=== PATIENT | male | born 1960 | race Caucasian/White ===

== ENCOUNTER 2019-10-14 07:26 | Day surgery (SDC) | payer BC ==
[~2019-10-14 07:26] MED LIST: Midazolam 1 MG/ML 2 ML SDV ONE; fentaNYL 100 MCG/2 ML SDV ONE
[2019-10-14] MEDS ORDERED: Midazolam 1 MG/ML 2 ML SDV IV ONE ×5 (07:27→08:37)
[2019-10-14] MEDS ORDERED: fentaNYL 100 MCG/2 ML SDV IV ONE ×3 (07:27→08:34)
[2019-10-14] MEDS ORDERED: Dextrose 5%-0.45% NaCl 1,000 ML IV SCH (08:00)
--- NOTE | 2019-10-14 09:14 | OR ---
DATE: 10/14/2019 PREOPERATIVE DIAGNOSIS: Personal history of prior colon polyps. POSTOPERATIVE DIAGNOSIS: Personal history of prior colon polyps. PROCEDURE: Total colonoscopy with snare excision of polyps x2, 1 in the cecum, 1 in the sigmoid. ANESTHESIA: Conscious sedation with IV Versed and fentanyl. SPECIMEN: Polyp x2. OPERATIVE FINDINGS: Above-mentioned polyps, very small, 3 to 4 mm in size, and scattered diverticula throughout the colon. INDICATION FOR PROCEDURE: This 59-year-old male has had a prior colonoscopy with polyp excision. He is here for followup. RECOMMENDATION: Followup colonoscopy in 5 years for screening. PROCEDURE IN DETAIL: After adequate preparation, colonoscope was inserted into the rectum. This was easily passed all the way to the cecum. Confirmation of the cecum was made by visualization of the ileocecal valve and palpation in the right lower quadrant. The bowel prep was good. On withdrawal of the scope, there is a small sessile polyp noted in the junction of the cecum and right colon. A small snare was placed around this. It was clipped off and retrieved for pathological evaluation. The rest of the colon was also normal except for some scattered diverticula throughout the colon, most prominently, however, in the sigmoid. At the junction of the sigmoid and rectum, there was another small 3 to 4 mm polyp. This was likewise snared off and retrieved for evaluation. No other abnormalities were noted. This patient should have a followup screening for polyp surveillance in 5 years. [facility] /[id number]
== END 2019-10-14 10:34 | disposition home or self-care (01) ==
LOC: DL.ENDO 07:26
PROVIDERS: ATTEND Surgery
DX: Z12.11 Encounter for screening for malignant neoplasm of colon (principal); D12.7 Benign neoplasm of rectosigmoid junction; D12.0 Benign neoplasm of cecum; K57.30 Diverticulosis of large intestine without perforation or abscess without bleeding; G43.909 Migraine, unspecified, not intractable, without status migrainosus; F17.210 Nicotine dependence, cigarettes, uncomplicated; Z86.010 Personal history of colon polyps
CPT/HCPCS: 45385; J7042; J2250; J3010

== ENCOUNTER 2024-11-09 07:22 | Day surgery (SDC) | payer BC ==
[2024-11-09] MEDS: Dextrose 5%-0.45% NaCl 1,000 ML IV SCH (07:59)
[2024-11-09] MEDS ORDERED: Midazolam 1 MG/ML 2 ML SDV IV ONE (08:14)
[2024-11-09] MEDS ORDERED: Midazolam 1 MG/ML 2 ML SDV ONE (08:14)
[2024-11-09] MEDS ORDERED: fentaNYL 100 MCG/2 ML SDV ONE (08:14)
[2024-11-09] MEDS ORDERED: fentaNYL 100 MCG/2 ML SDV IV ONE (08:14)
[2024-11-09] MEDS: fentaNYL 100 MCG/2 ML SDV IV ONE ×2 (08:28→08:29)
[2024-11-09] MEDS: Midazolam 1 MG/ML 2 ML SDV IV ONE ×4 (08:29→08:34)
== END 2024-11-09 09:50 | disposition home or self-care (01) ==
LOC: DL.ENDO 07:22
PROVIDERS: ATTEND Internal Medicine Gastroenterology
DX: Z12.11 Encounter for screening for malignant neoplasm of colon (principal); R19.5 Other fecal abnormalities; D12.3 Benign neoplasm of transverse colon; K57.30 Diverticulosis of large intestine without perforation or abscess without bleeding; K21.9 Gastro-esophageal reflux disease without esophagitis
CPT/HCPCS: 45380; J2250; J3010; J7799

== ENCOUNTER 2025-10-01 12:40 | Emergency (ER) | payer BC, MEDICARE ==
[2025-10-01] MEDS ORDERED: Sodium Chloride 0.9% 10 ML Syringe FLUSH PRN (13:30)
[2025-10-01] MEDS: Heparin Sodium 5,000 Units/ML Vial IVPUSH ONE (13:46)
[2025-10-01] MEDS: Heparin Sodium/0.45% NaCl 25,000 UNITS/500 ML BAG IV SCH (13:46)
[2025-10-01 13:48] LABS: BASOPHILS PERCENT AUTO 1.0 % (0.0-1.0); EOSINOPHILS PERCENT AUTO 5.7 % (1.0-3.0); LYMPHOCYTES PERCENT AUTO 26.5 % (20.5-50.1); MONOCYTES PERCENT AUTO 8.7 % (2-8); NEUTROPHILS PERCENT AUTO 58.1 % (42.2-75.2); PLATELET COUNT,PLT 412 10^3/uL (150-450); RED BLOOD CELL COUNT 4.92 10^6/uL (4.6-6.2); WHITE BLOOD CELL COUNT,WBC 6.0 10^3/uL (5.0-10.0)
[2025-10-01] MEDS: Ondansetron 4 MG/2 ML SDV IVPUSH ONE (13:56)
[2025-10-01 14:06] LABS: A/G RATIO 1.2; ALANINE AMINOTRANSFERASE,ALT 29.0 U/L (16-63); ASPARTATE AMNIOTRANSFERASE,AST 20.0 U/L (15-37); BILIRUBIN TOTAL 0.4 mg/dL (0.2-1.0); BLOOD UREA NITROGEN,BUN 19.0 mg/dL (7-18); CARBON DIOXIDE,CO2 29.0 mmol/L (21-32); CHLORIDE,CL 100.0 mmol/L (98-107); CREATININE 1.37 mg/dL (0.70-1.30); EST CRCL DRUG DOSING (CG) 53.76 mL/min; ESTIMATED GFR 57.0 mL/min (>=60); GLUCOSE RANDOM 99.0 mg/dL (70-99); POTASSIUM,K 4.2 mmol/L (3.5-5.1); PROTEIN TOTAL,TP 7.2 g/dL (6.4-8.2); SODIUM,NA 136.0 mmol/L (136-145)
[2025-10-01 14:09] LABS: INR 1.0 (0.9-1.2); PTT,PARTIAL THROMBOPLSTIN TIME 25.6 SEC (22.0-34.0)
== END 2025-10-01 14:19 ==
LOC: DL.ED 12:40
DX: I70.90 Unspecified atherosclerosis (principal); Z79.899 Other long term (current) drug therapy
CPT/HCPCS: 36415; 80053; 85025; 85610; 85730; 96365; 96375; 99284; J1644; J2405; J1171